=== PATIENT | male | born 1980 | race Caucasian/White ===

== ENCOUNTER 2022-03-17 14:00 | Outpatient (CLI) | payer OTHER, SELFPAY ==
--- NOTE | ~2022-03-17 | US_ITS ---
US right upper quadrant DATE: 03/17/2022 14:55 INDICATION: Abdominal pain TECHNIQUE: Real-time imaging of liver, pancreas, gallbladder COMPARISON: None FINDINGS: No hepatic or pancreatic space-occupying mass lesion is evident. Normal hepatopedal portal venous flow direction. There are multiple nonmobile nondependent up to approximately 5 mm filling defects along the gallblad renetta wall, most consistent with gallbladder polyps. These are do not move and do not shadow. No gallbl adder wall thickening is noted. Negative sonographic Sifuentes's sign. The common bile duct measures 3 mm, normal. IMPRESSION: Gallbladder polyps Reviewed, dictated and finalized at [facility] Reviewed, dictated and finalized at [facility]. [facility] IMPRESSION: Gallbladder polyps
== END 2022-03-17 14:01 ==
DX: Z04.9 Encounter for examination and observation for unspecified reason (principal); K82.4 Cholesterolosis of gallbladder
CPT/HCPCS: 76705